=== PATIENT | male | born 1970 | race Two or more races ===

== ENCOUNTER 2023-07-24 13:05 | Emergency (ER) | payer OTHER ==
[~2023-07-24] VITALS: Ht 180.3 cm; Wt 144.6 kg
[2023-07-24 17:19] VITALS: BP 150/87; PULSE 69; RESP 16; TEMP 98.3; O2SAT 99
[2023-07-24] MEDS ORDERED: KETOROLAC TROMETH 60MG/2ML VIAL IM ONE (17:45)
[2023-07-24] MEDS ORDERED: methylPREDNISolone SOD SUCC 125 MG/2 ML VL IM ONE (17:45)
== END 2023-07-24 13:15 | disposition home or self-care (01) ==
LOC: ER 13:05
DX: M54.41 Lumbago with sciatica, right side (principal); M79.604 Pain in right leg; Z88.5 Allergy status to narcotic agent; Z88.8 Allergy status to other drugs, medicaments and biological substances
CPT/HCPCS: 96372; 99284; J1885; J2930; 93005